=== PATIENT | male | born 1960 | race Caucasian/White ===

== ENCOUNTER 2018-08-21 00:04 | Emergency (ER) | payer MEDICARE, MEDICAID ==
[2018-08-21] MEDS ORDERED: HYDROmorphone 1 MG/ML Syringe IVPUSH ONE ×3 (00:10→03:05)
[2018-08-21] MEDS ORDERED: HYDROmorphone 1 MG/ML Syringe ONE ×2 (00:17→03:07)
[2018-08-21] MEDS ORDERED: Sodium Chloride 0.9% 1,000 ML IV SCH (00:30)
[2018-08-21 00:38] LABS: CHLORIDE,CL 97 mmol/L (98-107); SODIUM,NA 139 mmol/L (136-145)
--- NOTE | 2018-08-21 00:55 | EDM.PDOC ---
ED HPI GENERAL MEDICAL PROBLEM - General Chief Complaint: Lower Extremity Injury/Pain Stated Complaint: fall Time Seen by Provider: 08/21/18 00:10 Source of Information: Reports: Patient History Limitations: Reports: No Limitations - History of Present Illness INITIAL COMMENTS - FREE TEXT/NARRATIVE: Patient is a 58-year-old gentleman who fell earlier this today was helped up by sister and brother then walked with severe right knee pain pain worsen to the point that it was unbearable patient states that was about a 10 out of 10 911 was called and patient transferred to [facility] for evaluation and treatment Onset: Today Duration: Hour(s):, Getting Worse Location: Reports: Upper Extremity, Right Quality: Reports: Ache, Sharp, Stabbing, Throbbing Severity: Severe Improves with: Reports: None Worsens with: Reports: Movement Context: Reports: Trauma Right Knee Pain Score (Numeric/FACES): 7 - Related Data Allergies Allergy/AdvReac Type Severity Reaction Status Date / Time NSAIDS (Non-Steroidal Allergy Other Verified 08/21/18 00:23 Anti-Inflamma Home Meds: Home Meds Warfarin [Coumadin] 5 mg PO ASDIRECTED 05/10/14 [History] Cholecalciferol (Vitamin D3) [Vitamin D3] 2,000 unit PO DAILY 06/01/15 [History] Digoxin [Lanoxin] 125 mcg PO BEDTIME 06/01/15 [History] Lisinopril 7.5 mg PO DAILY 06/01/15 [History] Metoprolol Tartrate 100 mg PO BID 06/01/15 [History] Nicotine Polacrilex [Nicotine Lozenge] 2 mg PO Q1H PRN 06/01/15 [History] Nicotine [Habitrol] 7 mg TRDERM DAILY 06/01/15 [History] Nitroglycerin [Nitrostat] 0.4 mg SL Q5M PRN 06/01/15 [History] Potassium Chloride [Klor-Con M20] 20 meq PO DAILY 06/01/15 [History] Bumetanide [Bumex] 4 mg PO BID 30 Days tab 06/08/15 [Rx] Albuterol/Ipratropium [Combivent Respimat] 4 gm IH DAILY 08/21/18 [History] Diltiazem HCl [Cartia Xt] 180 mg PO DAILY 08/21/18 [History] Fluticasone/Salmeterol [Advair 100-50] 1 puff INH DAILY 08/21/18 [History] Umeclidinium Victoria [Incruse Ellipta*] 1 puff INH DAILY 08/21/18 [History] atorvaSTATin [Lipitor] 10 mg PO BEDTIME 08/21/18 [History] levETIRAcetam [Keppra] 1,000 mg PO BID 08/21/18 [History] Past Medical History HEENT History: Reports: Cataract Cardiovascular History: Reports: Afib, Heart Failure, Hypertension Other Cardiovascular History: surgery around the sac of the heart Respiratory History: Reports: COPD Other Musculoskeletal History: weakness when ambulating Neurological History: Reports: Seizure Hematologic History: Reports: Anticoagulation Therapy - Past Surgical History HEENT Surgical History: Reports: Cataract Surgery Review of Systems - Review of Systems Review Of Systems: See Below Eyes: Reports: No Symptoms Ears: Reports: No Symptoms Nose: Reports: No Symptoms Mouth/Throat: Reports: No Symptoms Respiratory: Reports: Shortness of Breath Cardiovascular: Reports: Other (Removal of pericardial) Genitourinary: Reports: No Symptoms Musculoskeletal: Reports: Leg Pain, Joint Swelling ED EXAM, GENERAL - Physical Exam Exam: See Below Exam Limited By: No Limitations General Appearance: Severe Distress, Obese Ears: Normal External Exam, Normal Canal, Hearing Grossly Normal, Normal TMs Nose: Normal Inspection, Normal Mucosa, No Blood Throat/Mouth: Normal Inspection, Normal Lips, Normal Teeth, Normal Gums, Normal Oropharynx, Normal Voice, No Airway Compromise Head: Atraumatic, Normocephalic Neck: Normal Inspection, Supple, Non-Tender, Full Range of Motion Respiratory/Chest: Decreased Breath Sounds, Rales, Wheezing Cardiovascular: Normal Peripheral Pulses, Regular Rate, Rhythm, No Edema, No Gallop, No JVD, No Murmur, No Rub GI/Abdominal: Normal Bowel Sounds, Soft, Non-Tender, No Organomegaly, No Distention, No Abnormal Bruit, No Mass (Male) Exam: Deferred Rectal (Males) Exam: Deferred Back Exam: Decreased Range of Motion Extremities: Pedal Edema, Slow Capillary Refill, Joint Swelling (Right knee) Neurological: Alert, Oriented, CN II-XII Intact, Normal Cognition, Normal Gait, Normal Reflexes, No Motor/Sensory Deficits Psychiatric: Normal Affect, Normal Mood Lymphatic: No Adenopathy Course - Vital Signs Last Recorded V/S: Last Vital Signs Temp 98.8 F 08/21/18 00:10 Pulse 80 08/21/18 01:34 Resp 20 08/21/18 01:34 BP 115/56 L 08/21/18 01:34 Pulse Ox 99 08/21/18 01:34 - Orders/Labs/Meds Orders: Active Orders 24 hr Category Date Time Status Knee 1V or 2V Rt [CR] Stat Exams 08/21/18 00:24 Taken Knee wo Cont Rt [CT] Stat Exams 08/21/18 00:47 Taken Phytonadione [AquaMephyton] 5 mg Med 08/21/18 02:13 Ordered Sodium Chloride 0.9% [Normal Saline] 50 ml IV NOW Sodium Chloride 0.9% [Normal Saline] 1,000 ml Med 08/21/18 00:30 Active IV ASDIRECTED Medication Orders Sodium Chloride (Normal Saline) 1,000 mls @ 125 mls/hr IV ASDIRECTED VANCE Last Admin: 08/21/18 01:15 Dose: 125 mls/hr Phytonadione 5 mg/ Sodium (Chloride) 50.5 mls @ 100 mls/hr IV NOW ONE Stop: 08/21/18 02:43 Labs: Laboratory Tests 08/21/18 08/21/18 08/21/18 Range/Units 00:20 00:20 00:20 WBC (4.0-10.2) K/uL RBC (4.33-5.41) M/uL Hgb (13.1-16.8) g/dL Hct (39.0-49.0) % MCV (84.0-98.0) fL MCH (28.2-33.3) pg MCHC (31.7-36.0) g/dL RDW (11.2-14.1) % Plt Count (150-350) K/uL Neut % (Auto) (45.0-80.0) % Lymph % (Auto) (10.0-50.0) % [place] % (Auto) (2.0-14.0) % Eos % (Auto) (0.0-5.0) % Baso % (Auto) (0.0-2.0) % Neut # (Auto) (1.40-7.00) K/uL Lymph # (Auto) (0.50-3.50) K/uL Greene # (Auto) (0.00-1.00) K/uL Eos # (Auto) (0.00-0.50) K/uL Baso # (Auto) (0.00-0.20) K/uL PT 35.1 H (9.5-12.0) SEC INR 3.3 APTT (21.0-31.3) SEC D-Dimer, Quantitative > 5000 H (0-400) ng/mL Sodium 139 (136-145) mmol/L Potassium 4.2 (3.5-5.1) mmol/L Chloride 97 L (98-107) mmol/L Carbon Dioxide 34.1 H (21.0-32.0) mmol/L BUN 21 H (7-18) mg/dL Creatinine 1.28 H (0.51-1.17) mg/dL Est Cr Clr Drug Dosing TNP Estimated GFR (MDRD) 58 mL/min Glucose 176 H (74-106) mg/dL Calcium 9.1 (8.5-10.1) mg/dL Total Bilirubin 0.9 (0.2-1.0) mg/dL AST 25 (15-37) U/L ALT 25 (12-78) U/L Alkaline Phosphatase 101 (46-116) IU/L NT-Pro-B Natriuret Pep (0-125) pg/mL Total Protein 8.3 H (6.4-8.2) g/dL Albumin 3.5 (3.4-5.0) g/dL Specimen Type Urine Color Urine Appearance Urine pH (5.0-9.0) Ur Specific [place] (1.005-1.030) Urine Protein (NEGATIVE) mg/dL Urine Glucose (UA) (NEGATIVE) mg/dL Urine Ketones (NEGATIVE) mg/dL Urine Occult Blood (NEGATIVE) Urine Nitrite (NEGATIVE) Urine Bilirubin (NEGATIVE) Urine Urobilinogen (0.2-1.0) E.U./dL Ur Leukocyte Esterase (NEGATIVE) Urine RBC /HPF Urine WBC /HPF Ur Epithelial Cells /LPF Urine Bacteria (NONE TO FEW) /HPF 08/21/18 08/21/18 08/21/18 Range/Units 00:20 00:20 00:24 WBC 11.4 H (4.0-10.2) K/uL RBC 4.31 L (4.33-5.41) M/uL Hgb 13.3 (13.1-16.8) g/dL Hct 39.5 (39.0-49.0) % MCV 91.6 (84.0-98.0) fL MCH 30.9 (28.2-33.3) pg MCHC 33.7 (31.7-36.0) g/dL RDW 13.8 (11.2-14.1) % Plt Count 130 L (150-350) K/uL Neut % (Auto) 76.4 (45.0-80.0) % Lymph % (Auto) 11.3 (10.0-50.0) % Greene % (Auto) 11.3 (2.0-14.0) % Eos % (Auto) 0.7 (0.0-5.0) % Baso % (Auto) 0.3 (0.0-2.0) % Neut # (Auto) 8.75 H (1.40-7.00) K/uL Lymph # (Auto) 1.29 (0.50-3.50) K/uL Greene # (Auto) 1.29 H (0.00-1.00) K/uL Eos # (Auto) 0.08 (0.00-0.50) K/uL Baso # (Auto) 0.03 (0.00-0.20) K/uL PT (9.5-12.0) SEC INR APTT 42.9 H (21.0-31.3) SEC D-Dimer, Quantitative (0-400) ng/mL Sodium (136-145) mmol/L Potassium (3.5-5.1) mmol/L Chloride (98-107) mmol/L Carbon Dioxide (21.0-32.0) mmol/L BUN (7-18) mg/dL Creatinine (0.51-1.17) mg/dL Est Cr Clr Drug Dosing Estimated GFR (MDRD) mL/min Glucose (74-106) mg/dL Calcium (8.5-10.1) mg/dL Total Bilirubin (0.2-1.0) mg/dL AST (15-37) U/L ALT (12-78) U/L Alkaline Phosphatase (46-116) IU/L NT-Pro-B Natriuret Pep 195 H (0-125) pg/mL Total Protein (6.4-8.2) g/dL Albumin (3.4-5.0) g/dL Specimen Type Urine Color Urine Appearance Urine pH (5.0-9.0) Ur Specific [place] (1.005-1.030) Urine Protein (NEGATIVE) mg/dL Urine Glucose (UA) (NEGATIVE) mg/dL Urine Ketones (NEGATIVE) mg/dL Urine Occult Blood (NEGATIVE) Urine Nitrite (NEGATIVE) Urine Bilirubin (NEGATIVE) Urine Urobilinogen (0.2-1.0) E.U./dL Ur Leukocyte Esterase (NEGATIVE) Urine RBC /HPF Urine WBC /HPF Ur Epithelial Cells /LPF Urine Bacteria (NONE TO FEW) /HPF 08/21/18 Range/Units 00:59 WBC (4.0-10.2) K/uL RBC (4.33-5.41) M/uL Hgb (13.1-16.8) g/dL Hct (39.0-49.0) % MCV (84.0-98.0) fL MCH (28.2-33.3) pg MCHC (31.7-36.0) g/dL RDW (11.2-14.1) % Plt Count (150-350) K/uL Neut % (Auto) (45.0-80.0) % Lymph % (Auto) (10.0-50.0) % [place] % (Auto) (2.0-14.0) % Eos % (Auto) (0.0-5.0) % Baso % (Auto) (0.0-2.0) % Neut # (Auto) (1.40-7.00) K/uL Lymph # (Auto) (0.50-3.50) K/uL Greene # (Auto) (0.00-1.00) K/uL Eos # (Auto) (0.00-0.50) K/uL Baso # (Auto) (0.00-0.20) K/uL PT (9.5-12.0) SEC INR APTT (21.0-31.3) SEC D-Dimer, Quantitative (0-400) ng/mL Sodium (136-145) mmol/L Potassium (3.5-5.1) mmol/L Chloride (98-107) mmol/L Carbon Dioxide (21.0-32.0) mmol/L BUN (7-18) mg/dL Creatinine (0.51-1.17) mg/dL Est Cr Clr Drug Dosing Estimated GFR (MDRD) mL/min Glucose (74-106) mg/dL Calcium (8.5-10.1) mg/dL Total Bilirubin (0.2-1.0) mg/dL AST (15-37) U/L ALT (12-78) U/L Alkaline Phosphatase (46-116) IU/L NT-Pro-B Natriuret Pep (0-125) pg/mL Total Protein (6.4-8.2) g/dL Albumin (3.4-5.0) g/dL Specimen Type Urinvoid Urine Color Patricia Urine Appearance Slightly cloudy Urine pH 6.0 (5.0-9.0) Ur Specific [place] 1.015 (1.005-1.030) Urine Protein Negative (NEGATIVE) mg/dL Urine Glucose (UA) Negative (NEGATIVE) mg/dL Urine Ketones Trace H (NEGATIVE) mg/dL Urine Occult Blood Negative (NEGATIVE) Urine Nitrite Negative (NEGATIVE) Urine Bilirubin Negative (NEGATIVE) Urine Urobilinogen 4.0 H (0.2-1.0) E.U./dL Ur Leukocyte Esterase Trace H (NEGATIVE) Urine RBC Not seen /HPF Urine WBC 0-5 /HPF Ur Epithelial Cells Moderate H /LPF Urine Bacteria Few (NONE TO FEW) /HPF Meds: Medications Generic Name Dose Route Start Last Admin Trade Name Freq PRN Reason Stop Dose Admin Sodium Chloride 1,000 mls @ 125 mls/hr 08/21/18 00:30 08/21/18 01:15 Normal Saline IV 125 mls/hr ASDIRECTED VANCE Administration Phytonadione 5 mg/ Sodium 50.5 mls @ 100 mls/hr 08/21/18 02:13 Chloride IV 08/21/18 02:43 NOW ONE Discontinued Medications Generic Name Dose Route Start Last Admin Trade Name Freq PRN Reason Stop Dose Admin Hydromorphone HCl Confirm 08/21/18 00:17 08/21/18 00:41 Dilaudid Administered 08/21/18 00:18 Not Given Dose 1 mg .ROUTE .STK-MED ONE Hydromorphone HCl 1 mg 08/21/18 00:10 08/21/18 00:18 Dilaudid IVPUSH 08/21/18 00:11 1 mg ONETIME ONE Administration Hydromorphone HCl 1 mg 08/21/18 00:45 08/21/18 01:13 Dilaudid IVPUSH 08/21/18 00:46 1 mg ONETIME ONE Administration Departure - Departure Time of Disposition: 02:21 Disposition: DC/Tfer to [facility] 02 Clinical Impression: Effusion, right knee, Elevated INR, Elevated d-dimer - Discharge Information *PRESCRIPTION DRUG MONITORING PROGRAM REVIEWED*: No *COPY OF PRESCRIPTION DRUG MONITORING REPORT IN PATIENT SYDNEE: No Instructions: Knee Effusion, [id number] Forms: ED Department Discharge Care Plan Goals: At this time discussed patient with both Dr. Ferrara orthopod and Dr. Peñaloza internal medicine hospitalist and agreed to transfer I will transfer patient to [facility] prior to transfer Dr. Peñaloza suggested that we give him 5 mg of AquaMEPHYTON/vitamin K patient pain seems to be controlled with IV medication at this time discussed labs with Dr. Peñaloza prior to transfer concerns with his d- dimer being so elevated patient has COPD and is on oxygen continuous at home - My Orders Last 24 Hours: My Active Orders 08/21/18 00:24 Knee 1V or 2V Rt [CR] Stat 08/21/18 00:30 Sodium Chloride 0.9% [Normal Saline] 1,000 ml IV ASDIRECTED 08/21/18 00:47 Knee wo Cont Rt [CT] Stat 08/21/18 02:13 Phytonadione [AquaMephyton] 5 mg Sodium Chloride 0.9% [Normal Saline] 50 ml IV NOW - Assessment/Plan Last 24 Hours: My Active Orders 08/21/18 00:24 Knee 1V or 2V Rt [CR] Stat 08/21/18 00:30 Sodium Chloride 0.9% [Normal Saline] 1,000 ml IV ASDIRECTED 08/21/18 00:47 Knee wo Cont Rt [CT] Stat 08/21/18 02:13 Phytonadione [AquaMephyton] 5 mg Sodium Chloride 0.9% [Normal Saline] 50 ml IV NOW
[2018-08-21] MEDS ORDERED: Phytonadione 5 MG in Sodium Chloride 0.9% 50 ML IV ONE (02:13)
[2018-08-21 04:25] VITALS: BP 109/55
== END 2018-08-21 03:08 ==
LOC: LL.ED 00:04
DX: M25.461 Effusion, right knee (principal); R79.89 Other specified abnormal findings of blood chemistry; I11.0 Hypertensive heart disease with heart failure; I50.9 Heart failure, unspecified; J44.9 Chronic obstructive pulmonary disease, unspecified; I48.91 Unspecified atrial fibrillation; Z79.899 Other long term (current) drug therapy; Z88.8 Allergy status to other drugs, medicaments and biological substances; Z79.01 Long term (current) use of anticoagulants; W19.XXXA Unspecified fall, initial encounter
CPT/HCPCS: 36415; 73560-RT; 73700-RT; 80053; 81001; 83880; 85025; 85379; 85610; 85730; 96361; 96365; 96375; 99285-25; J1170; J3430; J7030; J7050